=== PATIENT | female | born 1985 | race African-American/Black ===

== ENCOUNTER 2020-08-28 04:44 | Emergency (ER) | payer OTHER ==
[~2020-08-28] VITALS: Ht 172.7 cm; Wt 95.3 kg
[2020-08-28 05:10] VITALS: BP_SYST 132
[2020-08-28 06:57] VITALS: BP_SYST 123
[2020-08-29 08:06] LABS: HEPATITIS B CORE AB, TOTAL Negative (Negative); HEPATITIS B SURFACE AG Negative (Negative); HEPATITIS C VIRUS AB <0.1 s/co ratio (0.0-0.9)
== END 2020-08-28 07:01 | disposition home or self-care (01) ==
LOC: SED 04:44
DX: M79.672 Pain in left foot (principal); W46.1XXA Contact with contaminated hypodermic needle, initial encounter
CPT/HCPCS: 36415; 86704; 86706; 86803; 87340; 99283